=== PATIENT | male | born 1965 | race Caucasian/White ===

== ENCOUNTER 2016-08-06 15:54 | Emergency (ER) | payer OTHER ==
[~2016-08-06] VITALS: Ht 177.8 cm; Wt 110.2 kg
[2016-08-06] MEDS ORDERED: RIVA15TA PO (16:51)
--- NOTE | 2016-08-06 16:51 | ED Lower Extremity ---
General Chief Complaint: Lower Extremity Stated Complaint: L LEG BLOOD CLOT Nursing Triage Note: PT REPORTS HE WAS DC'D FROM [facility] YESTERDAY AFTER KIDNEY STONE REMOVAL SX. HE REPORTS HE WAS TAKEN OFF HIS COUMADIN PRIOR TO SX, BUT RESTARTED IT YESTERDAY. HE REPORTS HE BEGAN HAVING L LEG PAIN THIS AM AND HIS PCP ORDERED AN OP US WHICH SHOWED A THROMBUS TO HIS L LOWER EXTREMITY. Nursing Sepsis Screen: No Definite Risk Source: patient Exam Limitations: no limitations History of Present Illness Time seen by provider: 16:46 Initial Comments Patient has history of recurrent DVTs. He has an IVC filter. He was on maintenance Coumadin until last week when he had percutaneous nephrectomy and stenting at [facility]. He was maintained on Lovenox during that time. He was discharged 2 days ago and started back on his Coumadin. He developed left leg pain and swelling yesterday. His doctor ordered an outpatient ultrasound which showed a large left leg DVT. His INR was 1. His physician told him to come here for evaluation. He denies chest pain or shortness of air. Allergies and Home Medications Allergies Coded Allergies: NKANo Known Allergies (Verified Allergy, Unknown, 04/28/13) Home Medications Alprazolam 1 Mg Tablet, 1 MG PO HS, (Reported) Cefprozil 250 Mg Tablet, 250 MG PO BID, #14 Ref 0 Prescribed by: BRUCE SANDHU on 11/04/14 0942 Hydrocodone/Acetaminophen 1 Each Tablet, 1 TAB PO EVERY 6-8 HOURS PRN for PAIN, (Reported) Levothyroxine Sodium 88 Mcg Tablet, 88 MCG PO DAILY, (Reported) Tamsulosin HCl 0.4 Mg Cap, 0.4 MG PO EVERY EVENING, (Reported) Warfarin Sodium 7.5 Mg Tablet, 7.5 MG PO HS, (Reported) Constitutional: no symptoms reported Respiratory: no symptoms reported Cardiovascular: no symptoms reported Musculoskeletal: see HPI (leg pain and swelling) All Other Systems Reviewed Negative Unless Noted: Yes Past Lewxvfg-Ycxjkl-Setklv Hx Patient Social History Alcohol Use: Denies Use Recreational Drug Use: No Smoking Status: Never a Smoker 2nd Hand Smoke Exposure: No Recent Foreign Travel: No Contact w/Someone Who Travel: No Recent Infectious Disease Expo: No Recent Hopitalizations: Yes (HX KIDNEY STONES) Immunizations Up To Date Tetanus Booster (TDap): Unknown Surgeries HX Surgeries: Yes (URETERAL STENT, LEFT ANKLE ORIF, VENA CAVA FILTER) Surgeries: Orthopedic, Renal, Vascular Surgery Respiratory Hx Respiratory Disorders: Yes Respiratory Disorders: Pulmonary Embolism, Sleep Apnea Cardiovascular Hx Cardiac Disorders: Yes Cardiac Disorders: Deep Vein Thrombosis, Hypertension Neurological Hx Neurological Disorders: No Reproductive System Hx Reproductive Disorders: No Sexually Transmitted Disease: No Genitourinary Hx Genitourinary Disorders: Yes Genitourinary Disorders: Kidney Stones Gastrointestinal Hx Gastrointestinal Disorders: Yes (HEPATIC STEATOSIS) Gastrointestinal Disorders: Liver Disease/Jaundice, Diverticulosis Musculoskeletal Hx Musculoskeletal Disorders: Yes (LEFT ANKLE FX ORIF 2013) Musculoskeletal Disorders: Degenerate Disk Disease, Fractures Endocrine Hx Endocrine Disorders: Yes Endocrine Disorders: Hypothyroidsim HEENT HX ENT Disorders: No Cancer Hx Cancer: 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) Cancer: Thyroid Psychosocial Hx Psychiatric Problems: Yes Behavioral Health Disorders: Anxiety Integumentary HX Skin/Integumentary Disorder: No Blood Transfusions Hx Blood Disorders: No Reviewed Nursing Assessment Reviewed/Agree w Nursing PMH: Yes Family Medical History Family Medial History: Family history: Thyroid disorder 03 MOTHER Physical Exam Vital Signs Vital Sign - Last 12Hours 08/06/16 16:30 Temp 98.0 Pulse 75 Resp 16 B/P (MAP) 152/93 Pulse Ox 97 O2 Delivery Room Air Capillary Refill : Less Than 3 Seconds General Appearance: WD/WN, no apparent distress Neck: supple Cardiovascular: regular rate, rhythm Respiratory: lungs clear Gastrointestinal: soft Hips: bilateral hip non-tender Legs: left leg pain, left leg soft tissue tenderness (Tenderness and mild swelling left leg pedal pulses are equal), left leg swelling Neurologic/Tendon: normal sensation, normal motor functions Neurologic/Psychiatric: alert, normal mood/affect Skin: normal color Progress/Results/Core Measures Results/Orders Vital Signs/I&O Vital Sign - Last 12Hours 08/06/16 16:30 Temp 98.0 Pulse 75 Resp 16 B/P (MAP) 152/93 Pulse Ox 97 O2 Delivery Room Air Blood Pressure Mean: 112 Progress Note : Time: 16:50 Progress Note I spoke with Dr. Martinez who is on-call for internal medicine. She recommended starting Xarelto 50 mg twice a day for 3 weeks and 20 mg daily indefinitely for his DVT. I talk with the patient is in complete agreement with this. He is going to the pharmacy to berry picker his Xarelto tonight. He understands he needs to follow-up with his primary care physician regarding further treatment. Diagnostic Imaging Comments Date of Exam:08/06/16 US VENOUS LOWER EXT BLANKA EXAM: US VENOUS LOWER EXT BLANKA INDICATION: HX OF DVT, PAIN COMPARISON: Left lower extremity venous ultrasound 11/02/2014. FINDINGS: Right: The right common femoral, superficial femoral, profunda femoral and popliteal veins demonstrate normal compressibility, color flow and Doppler augmentation. The deep right calf veins are patent where seen. Left: There is occlusive thrombus extending from the distal left superficial femoral vein inferiorly into the ankle. Only one of the posterior tibial veins is patent. Both peroneal veins are occluded. The more proximal left superficial vein and common femoral vein are patent. IMPRESSION: 1. Occlusive thrombus within the left lower extremity extending from the left superficial vein inferiorly to the level of the ankle. 2. No evidence of deep venous thrombosis in the right lower extremity. Departure Impression Impression: Primary Impression: Deep vein thrombosis of left lower extremity Disposition: 01 HOME, SELF-CARE Condition: Stable Departure-Patient Inst. Decision time for Depature: 16:51 Referrals: BRUCE SANDHU DO (PCP/Family) Primary Care Physician Patient Instructions: Deep Vein Thrombosis (Blood Clots in the Legs) (DC) Add. Discharge Instructions: Stop Coumadin. Takes Xarelto 50 mg twice a day for 3 weeks. See your this week as you will need to change her dose to 20 mg daily after 3 weeks. All discharge instructions reviewed with patient and/or family. Voiced understanding. Scripts Rivaroxaban (Xarelto) 15 Mg Tablet 15 MG PO BID for 21 Days, #42 TAB Prov: OUMAR MARTINEZ MD 08/06/16 OUMAR MARTINEZ MD Aug 06, 2016 16:51
[2016-08-06 16:57] VITALS: BP 152/93
--- OUTSIDE RECORDS SUMMARY | 2016-08-18 12:37 | XMS REPORT | Continuity of Care Document ---
Author Author [facility] Organization [facility] Address Unknown Phone Unavailable Care Team Providers Care Executive Communications Manager Name Role Phone Riky Terry III PCP [phone] Source Comments Some departments are not documenting in the electronic medical record. If you do not see the information that you expected, contact Release of Information in the Health Information Management department at [phone] for further assistance in locating additional records.[facility] Active Allergies and Adverse Reactions No Known Allergies Current Medications Prescription Sig. Disp. Refills Start End Date Status Date tamsulosin (FLOMAX) 0.4 Take 0.4 mg by mouth at Active mg capsule bedtime daily. ALPRAZolam (XANAX) 0.5 mg Take 0.5 mg by mouth at Active tablet bedtime as needed. levothyroxine (SYNTHROID) Take 88 mcg by mouth Active 88 mcg tablet daily. WARFARIN SODIUM (WARFARIN Take by mouth. Active PO) oxyCODONE/acetaminophen Take 1-2 Tabs by mouth 30 Tab 0 08/05/19 Active (PERCOCET; ENDOCET; every 4 hours as needed 17 ROXICET) 5/325 mg tablet Indications: PAIN senna/docusate Take 1 Tab by mouth twice 15 Tab 0 08/05/19 Active (SENNALAX-S) 8.6/50 mg daily. Indications: 17 tablet CONSTIPATION polyethylene glycol 3350 Take 17 g by mouth daily. 527 g 3 08/05/19 Active (GLYCOLAX; MIRALAX) 17 17 gram/dose powder hyoscyamine (ANASPAZ; Dissolve 1 Tab by mouth 30 Tab 3 08/06/19 Active NULEV; SYMAX FASTABS; every 4 hours as needed 17 HYOMAX-FT; ED-SPAZ; for Cramps. Max 1.5 mg/ OSCIMIN) 0.125 mg rapid day dissolve tablet oxybutynin chloride Take 1 Tab by mouth three 90 Tab 1 08/06/19 Active (DITROPAN) 5 mg tablet times daily. For bladder 17 spasms Active Problems Problem Noted Date Nephrolithiasis 08/02/2016 Kidney stones 12/30/2013 Overview: He has a very long history of stones managed previously by Dr. Yanes in [place], [place]. He has had countless ESWLs for these but no other procedures. Occasionally, he will pass stones on his own. In 04/2013, he broke his leg and was admitted to the hospital for management. He then developed a wound infection and had to be treated with IV antibiotics. While inpatient, he had gross hematuria. CT scan on 12/2013 showed large right lower pole kidney stone. I spoke with patient regarding CT scan findings. He has a large stone in the right lower pole. He reports being symptomatic (pain, blood in urine). His case is complicated by his need for anticoagulation in the perioperative time frame. Therefore, I have recommended ureteroscopy (as opposed to ESWL or PCNL). He agrees. He understands need for stent afterwards. He is going to get anticoagulation recommendation from Dr. Terry. Will schedule surgery based on clearance. All qeustions answered. Patient subsequently cancelled surgery due to fear of hematuria and pain after surgery. He was also worried about the stent. He does not want to come of anticoagulation. 07/13/14: Patient here for follow-up. CT scan shows large lower pole right kidney stone. Patient lost to follow-up. 05/01/16: Patient comes back for follow-up requesting surgery. Stone has grown in size to 1.7 cm in size with multiple other stones. L ast Assessment & Plan: Patient with enlarging right kidney stone and increasing hematuria with activity (golfing). He is now ready to proceed with surgery. Finding a date was difficult given his schedule and requests. -- To OR 07/21/16 for right PCNL -- IR access 07/20/16 in mid/lower pole -- All risks and benefits discussed in depth. All questions answered -- Patient will need clearance by Dr. Terry in regards to anticoagulation recommendations -- Urine culture today -- All questions answered Most Recent Encounters Date Type Specialty Providers Description 08/11/2016 Telephone Urology Reed Olson MD General Question 08/05/2016 Telephone Urology Suzy Moraes MD General Question 08/03/2016 Surgery Monster Hernández MD RIGHT PERCUTANEOUS NEPHROLITHOTOMY > 2CM, DILATION OF NEPHROSTOMY TUBE TRACT, FLUOROSCOPY, STENT PLACEMENT 08/02/2016 [facility] Monster Hernández MD Nephrolithiasis - Encounter Alise[address]rys[address]am[address] Lane, 08/04/2016 RN Mayur Lott Zachary S, MD 08/02/2016 Anesthesia Ehsan Marie, SRNA Event 06/06/2016 Telephone Cardiology Mary Moyer Social History Tobacco Use Types Packs/Day Years Used Date Current Every Day Smoker Cigarettes 1 25 Smokeless Tobacco: Never Used Tobacco Cessation: Ready to Quit: No; Counseling Given: No Comments: Alcohol Use Drinks/Week oz/Week Comments No Last Filed Vital Signs Vital Sign Reading Time Taken Blood Pressure 133/71 08/04/2016 8:00 AM CDT Pulse 71 08/04/2016 8:00 AM CDT Temperature 36.9 C (98.5 F) 08/04/2016 8:00 AM CDT Respiratory Rate - - Height 1.753 m (5' 9") 08/02/2016 6:00 PM CDT Weight 108.863 kg (240 lb) 08/02/2016 6:00 PM CDT Body Mass Index 35.43 08/02/2016 6:00 PM CDT Oxygen Saturation 94% 08/04/2016 8:00 AM CDT Plan of Care Health Maintenance Due Date Last Done Comments Hepatitis C Screening 1965 Physical (Comprehensive) 01/25/1972 Exam Pertussis Vaccine 01/25/1976 Tetanus Vaccine 1982 Colorectal Cancer 2015 Screening Influenza Vaccine 11/03/2016 Procedures from Last 3 Months Procedure Name Priority Date/Time Associated Diagnosis Comments TELEMETRY STRIPS-SCAN 08/07/2016 Results for this 9:22 AM CDT procedure are in the results section. RIGHT PERCUTANEOUS 08/03/2016 Kidney stone NEPHROLITHOTOMY > 2CM, 10:25 AM CDT DILATION OF NEPHROSTOMY TUBE TRACT, FLUOROSCOPY, STENT PLACEMENT Special Needs 3-16 PER CHANGE FORM, CASE MOVED FROM 5-19 TO 6-1 CS (1233) Results from Last 3 Months * TELEMETRY STRIPS-SCAN (08/07/2016 9:22 AM) Narrative Ordered by an unspecified provider. * CT ABD/PELV WO CONTRAST (08/04/2016 6:25 AM) Impressions 1. Interval right percutaneous nephrolithotomy without residual right renal/ urinary tract calculi. 2. Right nephroureteral stent in place without hydronephrosis. 3. Malpositioned right percutaneous nephrostomy adjacent to the right lower pole. 4. Persistent nonobstructive left nephrolithiasis. 5. Moderate diverticulosis. Approved by Collin Cristina M.D. on 08/04/2016 8:41 AM By my electronic signature, I attest that I have personally reviewed the images for this examination and formulated the interpretations and opinions expressed in this report Finalized by Lillian Fontanez M.D. on 08/04/2016 8:50 AM. Dictated by Collin Cristina M.D. on 08/04/2016 7:[address] ABDOMEN AND PELVIS Clinical Indication: Status post percutaneous nephrolithotomy, nephrolithiasis. Technique: Multiple contiguous axial CT images were obtained through the abdomen and pelvis without IV contrast. Post processing coronal and sagittal reconstruction images were made from the axial images. IV contrast: None. Comparison: May 01, 2016. FINDINGS: Limited evaluation without the use of IV contrast which includes the viscera and vasculature. Lower Thorax: The heart is normal size without significant pericardial effusion. There is a trace left pleural effusion. There is mild bibasilar atelectasis. Liver and Biliary system: The liver is normal in size. Limited evaluation for focal hepatic lesion in the absence of intravenous contrast. No calcified gallstones are identified. Spleen: Unremarkable. Adrenal Glands and Kidneys: There is a are few unchanged punctate nonobstructive left renal calculi. The adrenal glands are unremarkable. There is interval removal of staghorn calculus within the lower pole of the right kidney. No definite residual right renal calculi are identified. There is malpositioning of the right percutaneous nephrostomy adjacent to the inferior pole the right kidney. There is a right nephroureteral stent in place with trace gas within the collecting system. There is no hydronephrosis or urolithiasis. Pancreas and Retroperitoneum: The pancreas is unremarkable. There is unchanged mild retroperitoneal lymphadenopathy. Aorta and Major Vessels: The abdominal aorta is normal caliber with mild aortoiliac atherosclerotic calcifications. There is an IVC filter in place with multiple collaterals again noted. Bowel, Mesentery and Peritoneal space: The large and small bowel loops are normal caliber. There is moderate colonic diverticulosis. The appendix is normal. There is no significant ascites. There is mild central mesenteric/ retroperitoneal congestion which is likely post therapeutic. Pelvis: The urinary bladder is partially decompressed about a Serrano catheter. There is intraluminal urinary bladder gas which is likely iatrogenic. The prostate gland is normal. There is no pelvic lymphadenopathy. Abdominal wall and Osseous Structures: No destructive osseous lesion is identified. There are small fat-containing inguinal hernias and a tiny fat- containing umbilical hernia. Procedure Note Interface, Radiant Results - SunAug 04, 2016 8:[address] ABDOMEN AND PELVIS Clinical Indication: Status post percutaneous nephrolithotomy, nephrolithiasis. Technique: Multiple contiguous axial CT images were obtained through the abdomen and pelvis without IV contrast. Post processing coronal and sagittal reconstruction images were made from the axial images. IV contrast: None. Comparison: May 01, 2016. FINDINGS: Limited evaluation without the use of IV contrast which includes the viscera and vasculature. Lower Thorax: The heart is normal size without significant pericardial effusion. There is a trace left pleural effusion. There is mild bibasilar atelectasis. Liver and Biliary system: The liver is normal in size. Limited evaluation for focal hepatic lesion in the absence of intravenous contrast. No calcified gallstones are identified. Spleen: Unremarkable. Adrenal Glands and Kidneys: There is a are few unchanged punctate nonobstructive left renal calculi. The adrenal glands are unremarkable. There is interval removal of staghorn calculus within the lower pole of the right kidney. No definite residual right renal calculi are identified. There is malpositioning of the right percutaneous nephrostomy adjacent to the inferior pole the right kidney. There is a right nephroureteral stent in place with trace gas within the collecting system. There is no hydronephrosis or urolithiasis. Pancreas and Retroperitoneum: The pancreas is unremarkable. There is unchanged mild retroperitoneal lymphadenopathy. Aorta and Major Vessels: The abdominal aorta is normal caliber with mild aortoiliac atherosclerotic calcifications. There is an IVC filter in place with multiple collaterals again noted. Bowel, Mesentery and Peritoneal space: The large and small bowel loops are normal caliber. There is moderate colonic diverticulosis. The appendix is normal. There is no significant ascites. There is mild central mesenteric/ retroperitoneal congestion which is likely post therapeutic. Pelvis: The urinary bladder is partially decompressed about a Serrano catheter. There is intraluminal urinary bladder gas which is likely iatrogenic. The prostate gland is normal. There is no pelvic lymphadenopathy. Abdominal wall and Osseous Structures: No destructive osseous lesion is identified. There are small fat-containing inguinal hernias and a tiny fat- containing umbilical hernia. IMPRESSION 1. Interval right percutaneous nephrolithotomy without residual right renal/ urinary tract calculi. 2. Right nephroureteral stent in place without hydronephrosis. 3. Malpositioned right percutaneous nephrostomy adjacent to the right lower pole. 4. Persistent nonobstructive left nephrolithiasis. 5. Moderate diverticulosis. Approved by Collin Cristina M.D. on 08/04/2016 8:41 AM By my electronic signature, I attest that I have personally reviewed the images for this examination and formulated the interpretations and opinions expressed in this report Finalized by Lillian Fontanez M.D. on 08/04/2016 8:50 AM. Dictated by Collin Cristina M.D. on 08/04/2016 7:42 AM. * BASIC METABOLIC PANEL (08/04/2016 3:04 AM) Only the most recent of 3 results within the time period is included. Component Value Range Sodium 139 137-147 MMOL/L Potassium 4.7 3.5-5.1 MMOL/L Chloride 108 98-110 MMOL/L CO2 25 21-30 MMOL/L Anion Gap 6 3-12 Glucose 110 (H) 70-100 MG/DL Blood Urea Nitrogen 14 7-25 MG/DL Creatinine 1.05 0.4-1.24 MG/DL Calcium 8.5 8.5-10.6 MG/DL eGFR Non >60Comment: >60 mL/min The eGFR is not validated for use in drug dosing adjustments. Continue to use estimated creatinine clearance per dosing reference text. Please contact the Clinical Pharmacist for questions. eGFR >60Comment: >60 mL/min The eGFR is not validated for use in drug dosing adjustments. Continue to use estimated creatinine clearance per dosing reference text. Please contact the Clinical Pharmacist for questions. Specimen Blood * CBC (08/04/2016 3:04 AM) Only the most recent of 3 results within the time period is included. Component Value Range White Blood Cells 16.4 (H) 4.5-11.0 K/UL RBC 4.97 4.4-5.5 M/UL Hemoglobin 14.7 13.5-16.5 GM/DL Hematocrit 44.3 40-50 % MCV 89.1 80-100 FL MCH 29.6 26-34 PG MCHC 33.2 32.0-36.0 G/DL RDW 14.4 11-15 % Platelet Count 124 (L) 150-400 K/UL MPV 8.8 7-11 FL Specimen Blood * STONE ANALYSIS (08/03/2016 12:00 PM) Component Value Range Stone Source Passed Stone [facility], [address] [place] [id number] 1st Constituent 90% Uric acid [facility], [address] [place] [id number] 2nd Constituent 10% Calcium oxalate monohydrate ADDITIONAL INFORMATION This test was developed and its performance characteristics determined by [facility] in a manner consistent with CLIA requirements. This test has not been cleared or approved by the U.S. Food and Drug Administration. [facility], [address] [place] [id number] * BLOOD TYPE CONFIRMATION - ORDER ONLY IF REQUESTED BY LAB (08/03/2016 9:30 AM) Component Value Range ABO/RH(D) O POS Specimen Blood * TYPE & CROSSMATCH (08/03/2016 8:50 AM) Component Value Range Units Ordered 0 Crossmatch Expires 08/06/2016 Record Check 2ND TYPE REQUIRED ABO/RH(D) O POS Antibody Screen NEG Electronic Crossmatch YES * IR ASPIRATION/DRAIN (08/02/2016 3:41 PM) Impressions Successful image guided placement of right percutaneous nephroureteral catheter. I, Marcus Camargo M.D, the attending radiologist, was present for the critical and holland portions of the procedure with a midlevel, resident, and/or fellow participating.Overlapping portions were non holland and I was immediately available.I interpret the critical and holland portion of this procedure to have been needle access. @TT Approved by Riky Lainez M.D. on 08/03/2016 11:12 AM By my electronic signature, I attest that I have personally reviewed the images for this examination and formulated the interpretations and opinions expressed in this report Finalized by Marcus Camargo M.D. on 08/03/2016 5:30 PM. Dictated by Riky Lainez M.D. on 08/03/2016 11:05 AM. Narrative 1. Right Antegrade Nephrostogram 2. Right Percutaneous Nephroureteral Catheter Placement INDICATION:Nephrolithiasis DATE OF PROCEDURE:08/02/2016 OPERATING PHYSICIAN: Marcus Camargo MD, Riky Lainez MD MEDICATIONS:Versed 1 mg IV, Fentanyl 200 mcg IV CATHETER: 5 Mauritian MILTON 1 catheter FLUOROSCOPY DOSE: 337 mGy TECHNIQUE: The risks benefits and alternatives of the procedure as well as conscious sedation were discussed. After obtaining informed consent the patient was prepped and draped in the usual sterile fashion. 1% lidocaine was used as local anesthetic. Using ultrasound guidance, a 22 gauge Chiba needle was introduced into the right lower pole posterior calyx.An 0.018 inch cope wire was then passed through the needle into the renal pelvis. The needle was then removed and a 6 Mauritian transitional dilator was placed over the wire, and subsequently the wire and inner dilator were removed.An antegrade nephrostogram was then performed. A 0.035" wire was advanced through the dilator into the ureter and the bladder.The transitional dilator was completely removed, and 5 Mauritian JB1 nephroureteral catheter was advanced into the renal pelvis and bladder. The nephroureteral catheter was then anchored to the skin and a sterile dressing was applied. The patient tolerated the procedure well and left the angiography suite in stable condition without any immediate postprocedural complications. Conscious sedation was provided for patient's comfort. Vitals were monitored prior, during and after the procedure and were stable. FINDINGS: 1. Antegrade nephrostogram demonstrates nephrolithiasis with a large calculus in the rightlower pole calyces. No significant hydroureter is identified. Normal passage of contrast into the bladder was visualized. 2. The new right-sided percutaneous nephroureteral catheter is adequately positioned with distal tip in the bladder. Procedure Note Interface, Radiant Results - [facility] Aug 03, 2016 5:33 PM CDT 1. Right Antegrade Nephrostogram 2. Right Percutaneous Nephroureteral Catheter Placement INDICATION: Nephrolithiasis DATE OF PROCEDURE: 08/02/2016 OPERATING PHYSICIAN: Marcus Camargo MD, Riky Lainez MD MEDICATIONS: Versed 1 mg IV, Fentanyl 200 mcg IV CATHETER: 5 Mauritian MILTON 1 catheter FLUOROSCOPY DOSE: 337 mGy TECHNIQUE: The risks benefits and alternatives of the procedure as well as conscious sedation were discussed. After obtaining informed consent the patient was prepped and draped in the usual sterile fashion. 1% lidocaine was used as local anesthetic. Using ultrasound guidance, a 22 gauge Chiba needle was introduced into the right lower pole posterior calyx. An 0.018 inch cope wire was then passed through the needle into the renal pelvis. The needle was then removed and a 6 Mauritian transitional dilator was placed over the wire, and subsequently the wire and inner dilator were removed. An antegrade nephrostogram was then performed. A 0.035" wire was advanced through the dilator into the ureter and the bladder. The transitional dilator was completely removed, and 5 Mauritian JB1 nephroureteral catheter was advanced into the renal pelvis and bladder. The nephroureteral catheter was then anchored to the skin and a sterile dressing was applied. The patient tolerated the procedure well and left the angiography suite in stable condition without any immediate postprocedural complications. Conscious sedation was provided for patient's comfort. Vitals were monitored prior, during and after the procedure and were stable. FINDINGS: 1. Antegrade nephrostogram demonstrates nephrolithiasis with a large calculus in the right lower pole calyces. No significant hydroureter is identified. Normal passage of contrast into the bladder was visualized. 2. The new right-sided percutaneous nephroureteral catheter is adequately positioned with distal tip in the bladder. IMPRESSION Successful image guided placement of right percutaneous nephroureteral catheter. I, Marcus Camargo M.D, the attending radiologist, was present for the critical and holland portions of the procedure with a midlevel, resident, and/or fellow participating. Overlapping portions were non holland and I was immediately available. I interpret the critical and holland portion of this procedure to have been needle access. @TT Approved by Riky Lainez M.D. on 08/03/2016 11:12 AM By my electronic signature, I attest that I have personally reviewed the images for this examination and formulated the interpretations and opinions expressed in this report Finalized by Marcus Camargo M.D. on 08/03/2016 5:30 PM. Dictated by Riky Lainez M.D. on 08/03/2016 11:05 AM.
--- OUTSIDE RECORDS SUMMARY | 2016-08-18 12:38 | XMS REPORT | Continuity of Care Document ---
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 Family History History Response Recorded Date/Time Hx Family Cancer N 05/05/10 6:12pm Social History History Response Recorded Date/Time Alcohol Use Denies Use 07/30/12 1:39pm Recreational Drug Use N 07/30/12 1:39pm Allergies, Adverse Reactions, Alerts Allergen Type Severity Reaction Last Updated NKANo Known Allergies Allergy Unknown 12/14/05 Medications Medication Dose Units Route Sig Qty Days Hydrocodone Bit/Acetaminophen (Hydrocodon-Acetaminoph 7.5-325) 1 Each PO Q4H PRN 20 Ciprofloxacin (Cipro) 1 Tab PO BID 7 Alprazolam (Xanax) 1 Tab PO PRN Metronidazole (Flagyl 500 Mg) 1 Each PO TID 30 Ciprofloxacin (Cipro) 1 Tab PO BID 20 Warfarin Sodium (Coumadin) 7 Mg PO DAILY Response Recorded Date/Time Status not known Unknown Results Test Date Result Interp. Ref. Range Acetaminophen Screen December 03, 2009 12:50am POSITIVE H - Activated Partial Thromboplast Time July 13, 2011 7:38pm 33 SEC N 24-35 Alanine Aminotransferase (ALT/SGPT) July 13, 2011 7:38pm 54 U/L N 30-65 Albumin July 13, 2011 7:38pm 3.7 G/DL N 3.4-5.0 Alkaline Phosphatase July 13, 2011 7:38pm 150 U/L H 50-136 Amylase Level June 10, 2011 1:30pm 71 U /L N 25-115 Anisocytosis October 26, 2006 11:47am Moderate - Aspartate Amino Transf (AST/SGOT) July 13, 2011 7:38pm 21 U/L N 15-37 BUN/Creatinine Ratio July 13, 2011 7:38pm 14 - Band Neutrophils June 10, 2011 1:30pm 0 % - Basophils # (Auto) July 13, 2011 7:38pm 0.1 10^3/uL N 0.0-0.1 Basophils % (Manual) June 10, 2011 1:30pm 0 % - Basophils (%) (Auto) July 13, 2011 7:38pm 1 % N 0-10 Blood Urea Nitrogen July 13, 2011 7:38pm 17 MG/DL N 7-18 Calcium Level July 13, 2011 7:38pm 8.9 MG /DL N 8.5-10.1 Carbon Dioxide Level July 13, 2011 7:38pm 31 MMOL/L N 21-32 Chloride Level July 13, 2011 7:38pm 105 MMOL/L N 101-110 Creatinine July 13, 2011 7:38pm 1.2 MG/ DL N 0.6-1.3 D-Dimer July 13, 2011 7:38pm < 0.22 UG/ ML 0.00-0.49 Eosinophils # (Auto) July 13, 2011 7:38pm 0.5 10^3/uL H 0.0-0.3 Eosinophils % (Manual) June 10, 2011 1:30pm 0 % - Eosinophils (%) (Auto) July 13, 2011 7:38pm 5 % N 0-10 Erythrocyte Sedimentation Rate July 13, 2011 7:38pm 1 MM/HR N 0-15 Glucose Level July 13, 2011 7:38pm 112 MG /DL H 74-106 Hematocrit July 13, 2011 7:38pm 51 % N 40-54 Hemoglobin July 13, 2011 7:38pm 17.3 G/ DL N 13.3-17.7 Lipase June 10, 2011 1:30pm 236 U/L N 73-393 Lymphocytes # (Auto) July 13, 2011 7:38pm 3.3 X 10^3 N 1.0-4.0 Lymphocytes % (Manual) June 10, 2011 1:30pm 17 % - Lymphocytes (%) (Auto) July 13, 2011 7:38pm 30 % N 12-44 Mean Corpuscular Hemoglobin July 13, 2011 7:38pm 30 PG N 25-34 Mean Corpuscular Hemoglobin Concent July 13, 2011 7:38pm 34 G/DL N 32-36 Mean Corpuscular Volume July 13, 2011 7:38pm 88 FL N 80-99 Mean Platelet Volume July 13, 2011 7:38pm 10.3 FL N 7.4-10.4 Microcytosis October 26, 2006 11:47am Moderate - Monocytes # (Auto) July 13, 2011 7:38pm 1.1 X 10^3 H 0.0-1.0 Monocytes % (Manual) June 10, 2011 1:30pm 10 % - Monocytes (%) (Auto) July 13, 2011 7:38pm 10 % N 0-12 Neutrophils # (Auto) July 13, 2011 7:38pm 6.0 X 10^3 N 1.8-7.8 Neutrophils % (Manual) June 10, 2011 1:30pm 73 % - Neutrophils (%) (Auto) July 13, 2011 7:38pm 55 % N 42-75 Platelet Count July 13, 2011 7:38pm 173 10^3/uL N 130-400 Potassium Level July 13, 2011 7:38pm 3.7 MMOL/L N 3.6-5.0 Prothromb Time International Ratio November 08, 2011 9: 04am 0.8 N 0.8-1.4 Prothrombin Time November 08, 2011 9:04am 11.5 SEC L 12.2-14.7 Reactive Lymphocytes October 26, 2006 11:47am 7 % - Red Blood Count July 13, 2011 7:38pm 5.82 10^6/uL N 4.35-5.85 Red Cell Distribution Width July 13, 2011 7:38pm 14.1 % N 10.0-14.5 Sodium Level July 13, 2011 7:38pm 140 MMOL/L N 135-145 Total Bilirubin July 13, 2011 7:38pm 0.1 MG/DL N 0.0-1.0 Total Protein July 13, 2011 7:38pm 7.9 G/ DL N 6.4-8.2 Ur Tricyclic Antidepressants Screen December 03, 2009 12: 50am NEGATIVE - Uric Acid September 19, 2011 12:51pm 5.9 MG/ DL N 2.6-7.2 Urine Amphetamines Screen December 03, 2009 12:50am NEGATIVE - Urine Bacteria June 10, 2011 1:58pm NONE - Urine Barbiturates Screen December 03, 2009 12:50am NEGATIVE - Urine Benzodiazepines Screen December 03, 2009 12:50am NEGATIVE - Urine Bilirubin June 10, 2011 1:58pm NEGATIVE - Urine Calcium Oxalate Crystals October 26, 2006 12:25pm Rare H - Urine Casts June 10, 2011 1:58pm NONE - Urine Clarity June 10, 2011 1:58pm CLEAR - Urine Cocaine Screen December 03, 2009 12:50am NEGATIVE - Urine Color June 10, 2011 1:58pm YELLOW - Urine Crystals June 10, 2011 1:58pm NONE - Urine Culture Indicated June 10, 2011 1:58pm NO - Urine Glucose (UA) June 10, 2011 1:58pm NEGATIVE - Urine Ketones June 10, 2011 1:58pm NEGATIVE - Urine Leukocyte Esterase June 10, 2011 1:58pm NEGATIVE - Urine Methamphetamines Screen December 03, 2009 12:50am NEGATIVE - Urine Mucus June 10, 2011 1:58pm SMALL H - Urine Nitrate October 26, 2006 12:25pm Negative - Urine Nitrite June 10, 2011 1:58pm NEGATIVE - Urine Opiates Screen December 03, 2009 12:50am NEGATIVE - Urine Phencyclidine Screen December 03, 2009 12:50am NEGATIVE - Urine Protein June 10, 2011 1:58pm NEGATIVE - Urine RBC June 10, 2011 1:58pm 50-100 / HPF H - Urine Specific [place] June 10, 2011 1:58pm 1.025 H - Urine Squamous Epithelial Cells June 10, 2011 1:58pm 0-2 - Urine Urobilinogen June 10, 2011 1:58pm NORMAL MG/DL - Urine WBC June 10, 2011 1:58pm 2-5 / HPF - Urine pH June 10, 2011 1:58pm 6.0 - White Blood Count July 13, 2011 7:38pm 10.9 10^3/uL N 4.3-11.0 Factor V Leiden Mutation May 06, 2010 6:50am NEG - Lab Scanned Report September 28, 2009 4:37pm LAB Reports [id number] - Estimat Glomerular Filtration Rate July 13, 2011 7:38pm > 60 - Blood Morphology Comment June 10, 2011 1:30pm NORMAL - Urine Methadone Screen December 03, 2009 12:50am NEGATIVE - Urine Cannabinoids Screen December 03, 2009 12:50am POSITIVE H - Urine RBC (Auto) June 10, 2011 1:58pm 4 + H - Procedures Procedure Code Date CYSTOSCOPY AND TREATMENT 72850 12/14/05 CYSTOSCOPY AND TREATMENT 03543 09/30/09 CYSTOSCOPY AND TREATMENT 60742 09/30/09 FRAGMENTING OF KIDNEY STONE 36780 CYSTOSCOPY AND TREATMENT 41140 10/14/09 CYSTOSCOPY AND TREATMENT 62936 12/07/09 FRAGMENTING OF KIDNEY STONE 84584 PLICATION OF VENA CAVA 38.7 05/05/10 FNA W/IMAGE 27202 11/08/11 MRSA Screen 05/05/10 Urine Culture 12/13/05 Encounters Encounter Location Date/Time Registered Emergency Room [facility] 07/30/12 1:36pm Departed Emergency Room [facility] 18/02 11:55am Discharged Inpatient [facility] 3:18pm
--- OUTSIDE RECORDS SUMMARY | 2016-08-18 12:38 | XMS REPORT | Continuity of Care Document ---
Author Author [facility] Organization [facility] Address Unknown Phone Unavailable Allergies Active Description Code Type Severity Reaction Onset Reported/Identified Relationship to Patient Clinical Status Yes NKANo Known Allergies NKA Miscellaneous Allergy Unknown N/ A 04/28/2013 Medications Problems Date Dx Coded Attending Type Code Diagnosis Diagnosed By 10/15/2009 Ot 592.0 12/04/2009 Ot 562.11 12/04/2009 Ot 592.0 12/04/2009 Ot 592.1 12/07/2009 Ot 591 12/07/2009 Ot 592.0 12/07/2009 Ot 592.1 12/07/2009 Ot 788.0 01/06/2010 Ot 592.0 05/10/2010 Ot 305.1 05/10/2010 Ot 415.19 05/10/2010 Ot 451.11 05/10/2010 Ot 451.19 05/10/2010 Ot V58.61 06/10/2011 Ot 592.1 06/10/2011 Ot 789.09 07/13/2011 Ot 729.5 09/19/2011 Ot 562.11 09/19/2011 Ot 789.09 02/09/2012 Ot 327.23 07/30/2012 [place] Ot 592.0 07/30/2012 [place] Ot 789.09 04/22/2013 BRUCE SANDHU DO Ot 305.1 04/22/2013 BRUCE SANDHU DO Ot 327.23 04/22/2013 BRUCE SANDHU DO Ot 401.9 04/22/2013 BRUCE SANDHU DO Ot 453.40 04/22/2013 BRUCE SANDHU DO Ot 682.6 04/22/2013 BRUCE SANDHU DO Ot 721.3 04/22/2013 BRUCE SANDHU DO Ot 998.59 04/22/2013 BRUCE SANDHU DO Ot V10.87 04/22/2013 PHOEBE TERRY BRUCE J Ot V12.51 04/22/2013 SANDHUBRUCE BEASLEY DO Ot V12.55 05/07/2013 BRUCE SANDHU DO Ot 038.9 05/07/2013 SANDHUBRUCE BEASLEY DO Ot 041.04 05/07/2013 BRUCE SANDHU DO Ot 244.0 05/07/2013 SANDHUBRUCE BEASLEY DO Ot 276.51 05/07/2013 SANDHUBRUCE BEASLEY DO Ot 305.1 05/07/2013 SANDHU DOBRUCE Ot 327.23 05/07/2013 SANDHUBRUCE BEASLEY DO Ot 401.9 05/07/2013 SANDHUBRUCE BEASLEY DO Ot 453.50 05/07/2013 SANDHU DOBRUCE Ot 518.0 05/07/2013 SANDHUBRUCE BEASLEY DO Ot 562.10 05/07/2013 SANDHU DOBRUCE Ot 570 05/07/2013 SANDHU DO BRUCE Mcdaniel Ot 571.8 05/07/2013 SANDHU DO BRUCE Mcdaniel Ot 592.0 05/07/2013 SANDHU DOBRUCE Ot 599.0 05/07/2013 SANDHU DOBRUCE Ot 608.86 05/07/2013 BRUCE SANDHU DO Ot 682.6 05/07/2013 SANDHU DO BRUCE Mcdaniel Ot 721.3 05/07/2013 SANDHUBRUCE BEASLEY DO Ot 785.52 05/07/2013 SANDHUBRUCE BEASLEY DO Ot 995.92 05/07/2013 SANDHU DO BRUCE Mcdaniel Ot V10.87 05/07/2013 SANDHU DO BRUCE Mcdaniel Ot V45.89 11/02/2014 Ot 592.0 11/02/2014 Ot V72.83 11/02/2014 Ot V74.8 11/02/2014 Ot 592.1 11/02/2014 Ot 598.9 11/02/2014 Ot 788.0 11/02/2014 Ot 592.1 11/02/2014 Ot 592.0 11/02/2014 Ot 592.0 11/02/2014 Ot 415.19 11/02/2014 Ot 453.40 11/02/2014 Ot 241.0 11/02/2014 Ot 241.0 11/02/2014 Ot V72.63 11/02/2014 Ot 721.3 11/02/2014 Ot 729.5 11/02/2014 Ot 786.50 11/02/2014 PHOEBEBRENDA BAG MACHINE SET UP OPERATOR Ot 729.5 11/02/2014 SANDHUBRENDA BAG MACHINE SET UP OPERATOR Ot 729.81 11/02/2014 PHOEBEBRENDA BAG MACHINE SET UP OPERATOR Ot 780.60 11/02/2014 PHOEBEBRENDA BAG MACHINE SET UP OPERATOR Ot V12.51 11/02/2014 SANDHUBRENDA BAG MACHINE SET UP OPERATOR Ot V45.89 11/02/2014 PHOEBEBRENDA BAG MACHINE SET UP OPERATOR Ot 723.1 11/02/2014 PHOEBE BRENDA Jim BAG MACHINE SET UP OPERATOR Ot 723.4 11/02/2014 NASEEM BYERS, SANTIAGO Weaver Ot 724.2 11/04/2014 BRUCE SANDHU DO Ot 038.9 11/04/2014 SANDHUBRUCE BEASLEY DO Ot 244.9 11/04/2014 SANDHUBRUCE FARR DO Ot 305.1 11/04/2014 SANDHUBRUCE FARR DO Ot 327.23 11/04/2014 SANDHUBRUCE FARR DO Ot 401.9 11/04/2014 SANDHUBRUCE FARR DO Ot 453.6 11/04/2014 SANDHU BRUCE TERRY Ot 571.8 11/04/2014 SANDHUBRUCE FARR DO Ot 682.6 11/04/2014 BRUCE SANDHU DO Ot 995.91 11/04/2014 BRUCE SANDHU DO Ot V06.1 11/04/2014 SANDHU BRUCE TERRY Ot V10.87 11/04/2014 SANDHUBRUCE FARR DO Ot V12.55 Procedures Results Test Result Range PT panel in platelet poor plasma by coagulation assay - 08/06/16 13:51 Prothrombin time (PT) in platelet poor plasma by coagulation assay 12.7 s 12.2-14.7 INR in platelet poor plasma or blood by coagulation assay 1.0 0.8-1.4 Automated blood complete blood count (hemogram) panel - 08/06/16 13:51 Blood leukocytes automated count (number/volume) 12.4 10*3/ uL 4.3-11.0 Blood erythrocytes automated count (number/volume) 5.06 10*6 /uL 4.35-5.85 Venous blood hemoglobin measurement (mass/volume) 14.8 g/dL 13.3-17.7 Blood hematocrit (volume fraction) 45 % 40-54 Automated erythrocyte mean corpuscular volume 90 [foz_us] 80-99 Automated erythrocyte mean corpuscular hemoglobin (mass per erythrocyte) 29 pg 25-34 Automated erythrocyte mean corpuscular hemoglobin concentration measurement ( mass/volume) 33 g/dL 32-36 Automated erythrocyte distribution width ratio 13.9 % 10.0-14.5 Automated blood platelet count (count/volume) 139 10*3/uL 130-400 Automated blood platelet mean volume measurement 10.4 [foz_ us] 7.4-10.4 Encounters ACCT No. Visit Date/Time Discharge Status Pt. Type Provider Facility Loc./Unit Complaint [id number] 08/06/2016 15:55:00 2016 16:57:00 DIS Emergency JUAN BYERS, OUMAR Gallego [facility] ER L LEG BLOOD CLOT [id number] 11/02/2014 22:24:00 2014 12:05:00 DIS Inpatient BRUCE SANDHU DO [facility] SURGICAL [id number] 07/21/2013 10:54:00 2013 23:59:59 CLS Outpatient NASEEM BYERS, SANTIAGO Weaver [facility] RAD [id number] 04/28/2013 14:55:00 2013 19:45:00 DIS Inpatient BRUCE SANDHU DO [facility] [address] [id number] 04/28/2013 08:39:00 2013 23:59:59 CLS Outpatient BRENDA SANDHU [facility] RAD [id number] 04/21/2013 12:27:00 2013 12:20:00 DIS Inpatient BRUCE SANDHU DO [facility] [address] [id number] 04/21/2013 09:36:00 2013 23:59:59 CLS Outpatient BRENDA SANDHU [facility] RAD [id number] 07/30/2012 13:36:00 2012 16:50:00 DIS Emergency KWAN SENLLIFRAHMOON L [facility] ER [id number] 08/06/2016 13:40:00 ACT Outpatient PHOEBE BRUCE TERRY [facility] RAD HX DVT,LOWER EXT PAIN [id number] 11/02/2014 18:39:00 Document Registration [id number] 11/02/2014 18:39:00 Document Registration [id number] 11/02/2014 18:39:00 Document Registration [id number] 11/02/2014 18:38:00 Document Registration [id number] 02/20/2012 07:03:00 Document Registration [id number] 02/08/2012 22:45:00 Document Registration [id number] 11/10/2011 10:35:00 Document Registration [id number] 11/08/2011 08:58:00 Document Registration [id number] 11/08/2011 08:45:00 Document Registration [id number] 10/24/2011 11:25:00 Document Registration [id number] 09/19/2011 11:55:00 Document Registration [id number] 07/13/2011 18:39:00 Document Registration [id number] 06/10/2011 13:17:00 Document Registration [id number] 06/09/2010 09:03:00 Document Registration [id number] 05/05/2010 15:18:00 Document Registration [id number] 02/03/2010 13:48:00 Document Registration [id number] 01/06/2010 05:46:00 Document Registration [id number] 12/21/2009 13:23:00 Document Registration [id number] 12/14/2009 15:38:00 Document Registration [id number] 12/07/2009 07:15:00 Document Registration [id number] 12/03/2009 02:30:00 Document Registration [id number] 10/14/2009 06:49:00 Document Registration [id number] 09/30/2009 05:46:00 Document Registration [id number] 09/29/2009 10:42:00 Document Registration
== END 2016-08-06 16:57 | disposition home or self-care (01) ==
LOC: EDUNIT# 15:54 → ER 15:55
DX: I82.402 Acute embolism and thrombosis of unspecified deep veins of left lower extremity (principal); F41.9 Anxiety disorder, unspecified; E03.9 Hypothyroidism, unspecified; I10 Essential (primary) hypertension; Z79.01 Long term (current) use of anticoagulants; Z90.5 Acquired absence of kidney; Z95.828 Presence of other vascular implants and grafts; Z86.711 Personal history of pulmonary embolism; Z90.89 Acquired absence of other organs; Z85.850 Personal history of malignant neoplasm of thyroid; Z87.81 Personal history of (healed) traumatic fracture
CPT/HCPCS: 99283

== ENCOUNTER → 2016-08-06 | Outpatient (CLI) | payer OTHER ==
[~2016-08-06] MED LIST: ALPR.5T PO; ALPR1TAB7 PO; CEFP250T2 PO; CEPH500C PO; CIPR-17 PO; CPR500T PO; ENXP30I.3 SC; FRSM40T PO; HYDR-229 PO; HYDR-3812 PO; HYDR118S10 PO; HYDR1TAB66 PO; HYDR4TAB PO; KETO-22 PO; LEVO88TA54 PO; LISI1TAB10 PO; LISI1TAB8 PO; LVT.05T PO; METR500T PO; ONDAN4ODT PO; OXYC-281 PO; OXYC-309 PO; POTA20TA15 PO; RIVA15TA PO; TAMS0.4C98 PO; TMSL.4C PO; TOPI25TA2 PO; WARF7.5T PO; WRF10T PO
[2016-08-06 13:58] LABS: MEAN PLATELET VOLUME 10.4 FL (7.4-10.4); RED BLOOD COUNT 5.06 10^6/uL (4.35-5.85); RED CELL DISTRIBUTION WIDTH 13.9 % (10.0-14.5)
--- NOTE | 2016-08-06 14:59 | Diagnostic Imaging Report ---
EXAM: US VENOUS LOWER EXT BLANKA INDICATION: HX OF DVT, PAIN COMPARISON: Left lower extremity venous ultrasound 11/02/2014. FINDINGS: Right: The right common femoral, superficial femoral, profunda femoral and popliteal veins demonstrate normal compressibility, color flow and Doppler augmentation. The deep right calf veins are patent where seen. Left: There is occlusive thrombus extending from the distal left superficial femoral vein inferiorly into the ankle. Only one of the posterior tibial veins is patent. Both peroneal veins are occluded. The more proximal left superficial vein and common femoral vein are patent. IMPRESSION: 1. Occlusive thrombus within the left lower extremity extending from the left superficial vein inferiorly to the level of the ankle. 2. No evidence of deep venous thrombosis in the right lower extremity. Dictated by: Dictated on workstation # [id number]
[2016-08-06 16:33] LABS: WHITE BLOOD COUNT 12.4 10^3/uL (4.3-11.0)
[2016-08-06 16:34] LABS: PROTHROMBIN TIME PATIENT 12.7 SEC (12.2-14.7)
== END ==
LOC: RAD 13:40
PROVIDERS: ATTEND Internal Medicine
DX: I82.812 Embolism and thrombosis of superficial veins of left lower extremity (principal)
CPT/HCPCS: 36415; 85027; 85610; 93970

== ENCOUNTER 2017-02-10 23:29 | Emergency (ER) | payer OTHER ==
[~2017-02-10] VITALS: Ht 177.8 cm; Wt 111.6 kg
[2017-02-10 23:59] LABS: INR 2.6 (0.8-1.4); PROTHROMBIN TIME PATIENT 27.9 SEC (12.2-14.7)
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
[2017-02-11 01:14] VITALS: BP 150/94
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
== END 2017-02-11 01:14 | disposition home or self-care (01) ==
LOC: EDUNIT# 23:30 → ER 23:31
DX: S60.042A Contusion of left ring finger without damage to nail, initial encounter (principal); S60.052A Contusion of left little finger without damage to nail, initial encounter; S60.011A Contusion of right thumb without damage to nail, initial encounter; F41.9 Anxiety disorder, unspecified; E03.9 Hypothyroidism, unspecified; I10 Essential (primary) hypertension; Z79.01 Long term (current) use of anticoagulants; F17.210 Nicotine dependence, cigarettes, uncomplicated; Z86.711 Personal history of pulmonary embolism; Z86.718 Personal history of other venous thrombosis and embolism; Z87.442 Personal history of urinary calculi; Z87.81 Personal history of (healed) traumatic fracture; Y04.8XXA Assault by other bodily force, initial encounter
CPT/HCPCS: 36415; 70450; 85610; 99283

== ENCOUNTER → 2020-06-15 | Outpatient (CLI) | payer MEDICARE ==
[~2020-06-15] MED LIST changes: +ACHD5005 PO; -HYDR-3812 PO; +RIVA15TA2 PO; -TAMS0.4C98 PO
[2020-06-15 13:14] LABS: BASOPHILS # (AUTO) 0.1 10^3/uL (0.0-0.1); BASOPHILS % (AUTO) 1 % (0-10); EOSINOPHILS # (AUTO) 0.3 10^3/uL (0.0-0.3); EOSINOPHILS % (AUTO) 3 % (0-10); HEMATOCRIT 51 % (40-54); HEMOGLOBIN 16.3 g/dL (13.3-17.7); LYMPHOCYTES # (AUTO) 2.2 10^3/uL (1.0-4.0); LYMPHOCYTES % (AUTO) 23 % (12-44); MEAN CORPUSCULAR HEMOGLOBIN 30 pg (25-34); MEAN CORPUSCULAR HGB CONC 32 g/dL (32-36); MEAN CORPUSCULAR VOLUME 92 fL (80-99); MEAN PLATELET VOLUME 10.3 fL (9.0-12.2); MONOCYTES # (AUTO) 1.1 10^3/uL (0.0-1.0); MONOCYTES % (AUTO) 11 % (0-12); NEUTROPHILS % (AUTO) 62 % (42-75); PLATELET COUNT 203 10^3/uL (130-400); WHITE BLOOD COUNT 9.7 10^3/uL (4.3-11.0)
[2020-06-15 13:35] LABS: ERYTHROCYTE SEDIMENTATION RATE 11 MM/HR (0-30)
[2020-06-15 13:36] LABS: INR 1.6 (0.8-1.4); PROTHROMBIN TIME PATIENT 19.9 SEC (12.2-14.7)
--- NOTE | 2020-06-15 14:23 | Diagnostic Imaging Report ---
PROCEDURE: US left lower extremity venous. TECHNIQUE: Multiple Real-time grayscale images were obtained over the left lower extremity in various projections. Additional duplex Doppler and color Doppler images were also obtained. INDICATION: Left leg pain. FINDINGS: There is no evidence of left lower extremity DVT. The left lower extremity deep venous system shows normal compressibility with normal response to augmentation and Valsalva. No fluid collection or mass is detected. IMPRESSION: No evidence of left lower extremity DVT. Dictated by: Dictated on workstation # [id number]
== END ==
LOC: RAD 12:52
PROVIDERS: ATTEND Nurse Practitioner Family
DX: Z51.81 Encounter for therapeutic drug level monitoring (principal); M79.605 Pain in left leg; Z86.718 Personal history of other venous thrombosis and embolism
CPT/HCPCS: 36415; 85025; 85379; 85610; 85652

== ENCOUNTER 2020-09-08 09:11 | Emergency (ER) | payer MEDICARE ==
[~2020-09-08] VITALS: Ht 177 cm; Wt 102.0 kg
[2020-09-08] MEDS ORDERED: NS IV 1000 ML 1,000 ML IV SCH (10:00)
[2020-09-08] MEDS ORDERED: DICYCLOMINE 10 MG (BENTYL) CAP PO SCH (10:00)
[2020-09-08 10:01] LABS: CHLORIDE 104 MMOL/L (98-107); SODIUM 136 MMOL/L (135-145)
[2020-09-08 10:03] LABS: CALCIUM 8.9 MG/DL (8.5-10.1); GLUCOSE 175 MG/DL (70-105)
[2020-09-08 10:05] LABS: CARBON DIOXIDE 22 MMOL/L (21-32)
[2020-09-08 10:07] LABS: CREATININE SERUM 1.13 MG/DL (0.60-1.30); GFR ESTIMATED > 60
[2020-09-08 10:08] LABS: BUN/CREATININE RATIO 13
--- NOTE | 2020-09-08 10:28 | ED General ---
General Chief Complaint: Fever-Adult/Adol Stated Complaint: COVID + Nursing Triage Note: PT PRESENTS TO ED WITH COMPLAINTS OF LETHARGY, INTERMITTENT FEVERS, DIAHRREA, AND ABDOMINAL CRAMPING STARTING 09/05. PT REPROTS HE WAS TESTED FOR COVID YESTERDAY AND FOUND OUIT HE WAS POSITIVE TODAY. PT DENIES SOA OR COUGH. Source of Information: Patient Exam Limitations: No Limitations History of Present Illness Date Seen by Provider: Sep 08, 2020 Time Seen by Provider: 09:42 Initial Comments Patient is a 55-year-old male who presents to the emergency department today with a chief complaint of having abdominal cramping significant amounts of diarrhea, lost of taste and smell intermittent fevers and generalized malaise. Patient states that he tested for Covid yesterday and got his results this morning and was positive. He has been having symptoms for 6 days, onset was on Sunday. Patient denies any shortness of breath or cough. No real upper respiratory congestion, sore throat or earache or runny nose. He called his primary care physician and they advised him to come to the emergency room for evaluation. Patient is Covid vaccinated with a Kvng & Kvng single dose vaccine He denies any genitourinary complaints, rashes joint pain or swelling. All other review of systems reviewed and negative except as stated above. Timing/Duration: 2-3 Days Severity: Moderate Associated Systoms: Fever/Chills, Malaise, Nausea/Vomiting, Other (Diarrhea) Allergies and Home Medications Allergies Coded Allergies: NKANo Known Allergies (Verified Allergy, Unknown, 04/28/13) Home Medications Alprazolam 1 Mg Tablet, 1 MG PO HS, (Reported) Cefprozil 250 Mg Tablet, 250 MG PO BID Prescribed by: BRUCE SANDHU on 11/04/14 0963 Hydrocodone Bit/Acetaminophen 1 Each Tablet, 1 TAB PO EVERY 6-8 HOURS PRN for PAIN, (Reported) Levothyroxine Sodium 88 Mcg Tablet, 88 MCG PO DAILY, (Reported) Rivaroxaban 15 Mg Tablet, 15 MG PO BID Prescribed by: OUMAR MARTINEZ on 08/06/16 2612 Tamsulosin HCl 0.4 Mg Cap, 0.4 MG PO EVERY EVENING, (Reported) Warfarin Sodium 7.5 Mg Tablet, 7.5 MG PO HS, (Reported) Patient Home Medication List Home Medication List Reviewed: Yes Review of Systems Review of Systems Constitutional: see HPI, malaise, weakness EENTM: no symptoms reported Respiratory: no symptoms reported Cardiovascular: no symptoms reported Gastrointestinal: diarrhea, loss of appetite, nausea Genitourinary: no symptoms reported Musculoskeletal: muscle pain, muscle cramps Skin: no symptoms reported Psychiatric/Neurological: No Symptoms Reported All Other Systems Reviewed Negative Unless Noted: Yes Past Dqrhuaf-Fhglcy-Jfulnd Hx Patient Social History Tobacco Use?: Yes Tobacco type used: Cigarettes Smoking Status: Current Everyday Smoker Substance use?: Yes Substance type: Marijuana Alcohol Use?: No Pt feels they are or have been: No Immunizations Up To Date Tetanus Booster (TDap): Unknown Second COVID19 Vaccination Balaji: 07/05/20 COVID19 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: [employer] Past Medical History Surgeries: Yes (URETERAL STENT, LEFT ANKLE ORIF, VENA CAVA FILTER) Orthopedic, Renal, Vascular Surgery Respiratory: Yes Pulmonary Embolism, Sleep Apnea Currently Using CPAP: No Currently Using BIPAP: No Cardiac: Yes Deep Vein Thrombosis, Hypertension Neurological: No Reproductive Disorders: No Sexually Transmitted Disease: No Kidney Stones Gastrointestinal: Yes (HEPATIC STEATOSIS) Liver Disease/Jaundice, Diverticulosis Musculoskeletal: Yes (LEFT ANKLE FX ORIF 2013) Degenerate Disk Disease, Fractures Endocrine: Yes Hypothyroidsim Cancer: 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) Thyroid Psychosocial: Yes Anxiety Integumentary: No Blood Disorders: No Family Medical History Family history: Thyroid disorder 03 MOTHER No Pertinent Family Hx Physical Exam Vital Signs Vital Signs - First Documented 09/08/20 09:32 Temp 37.1 Pulse 89 Resp 18 B/P (MAP) 151/95 (113) Pulse Ox 95 Capillary Refill : Less Than 3 Seconds Height, Weight, BMI Height: 5'10.00" Weight: 246lbs. 0.0oz. [id number]; 32.00 BMI Method:Stated General Appearance: No Apparent Distress, WD/WN HEENT: PERRL/EOMI Neck: Normal Inspection Respiratory: Lungs Clear, Normal Breath Sounds, No Accessory Muscle Use, No Respiratory Distress Cardiovascular: Regular Rate, Rhythm, Normal Peripheral Pulses Gastrointestinal: Normal Bowel Sounds, Soft, Tenderness (Mild tenderness in the bilateral lower quadrants without rebound or involuntary guarding) Extremity: Normal Capillary Refill, Normal Inspection Neurologic/Psychiatric: Alert, Oriented x3, No Motor/Sensory Deficits, Normal Mood/Affect Skin: Normal Color, Warm/Dry Progress/Results/Core Measures Suspected Sepsis SIRS Temperature: Pulse: 89 Respiratory Rate: 18 Blood Pressure 151 /95 Mean: 113 Laboratory Tests 09/08/20 09:27: Creatinine 1.13 Results/Orders Lab Results Laboratory Tests Test 09/08/20 09:27 Range/Units Sodium Level 136 135-145 MMOL/L Potassium Level 4.0 3.6-5.0 MMOL/L Chloride Level 104 98-107 MMOL/L Carbon Dioxide Level 22 21-32 MMOL/L Anion Gap 10 5-14 MMOL/L Blood Urea Nitrogen 15 7-18 MG/DL Creatinine 1.13 0.60-1.30 MG/DL Estimat Glomerular Filtration Rate > 60 BUN/Creatinine Ratio 13 Glucose Level 175 H 70-105 MG/DL Calcium Level 8.9 8.5-10.1 MG/DL My Orders Orders - CITLALY SLATER MD Ed Iv/Invasive Line Start (09/08/20 09:48) Basic Metabolic Panel (09/08/20 09:48) Ns Iv 1000 Ml (Sodium Chloride 0.9%) (09/08/20 10:00) Dicyclomine Capsule (Bentyl Capsule) (09/08/20 10:00) Vital Signs/I&O 09/08/20 09:32 Temp 37.1 Pulse 89 Resp 18 B/P (MAP) 151/95 (113) Pulse Ox 95 Capillary Refill : Less Than 3 Seconds Blood Pressure Mean: 113 Progress Note : Time: 10:26 Progress Note Patient's labs have been reviewed, all are within normal limits. Clinically the patient looks well he is not hypoxic. I have discussed with him doing the monoclonal antibody infusion for Covid. Patient is interested in having this medication. Risks and benefits were discussed. Paperwork was filled out. Patient has no clinical or objective findings to warrant hospitalization at this time. All questions are sought and answered. Patient is stable for discharge. Departure Impression Primary Impression: Coronavirus infection Disposition: 01 HOME, SELF-CARE Condition: Stable Departure-Patient Inst. Decision time for Depature: 10:27 Referrals: BRUCE SANDHU DO (PCP/Family) Primary Care Physician Patient Instructions: COVID-19 (DC) Add. Discharge Instructions: Drink plenty of fluids to stay well-hydrated. Alternate Tylenol and ibuprofen as needed for aches and pains and any fever over 100.4. We have given you an order sheet for the monoclonal antibody infusion to treat COVID-19. You will get an appointment for this infusion. Please come back to the emergency room for any worsening symptoms especially with shortness of breath, high fevers or other worsening emergent complaints. CITLALY SLATER MD Sep 08, 2020 10:28
[2020-09-08 10:55] VITALS: BP 157/97
== END 2020-09-08 10:58 | disposition home or self-care (01) ==
LOC: EDUNIT# 09:11 → ER 09:13
DX: U07.1 COVID-19 (principal); G47.30 Sleep apnea, unspecified; I10 Essential (primary) hypertension; F41.9 Anxiety disorder, unspecified; E03.9 Hypothyroidism, unspecified; F17.210 Nicotine dependence, cigarettes, uncomplicated; Z86.711 Personal history of pulmonary embolism; Z86.718 Personal history of other venous thrombosis and embolism; Z79.01 Long term (current) use of anticoagulants; Z79.890 Hormone replacement therapy; Z79.899 Other long term (current) drug therapy
CPT/HCPCS: 36415; 80048

== ENCOUNTER → 2020-09-09 | Outpatient (CLI) | payer MEDICARE ==
[~2020-09-09] VITALS: Ht 175.3 cm; Wt 104.4 kg
[~2020-09-09] MED LIST changes: +CASIRIVIMAB/IMDEVIMAB 1,200 MG in NS (IVPB) 250 ML IV ONE; +EPINEPHrine INJECTION 1 MG/ML AMP IM PRN; +diphenhydrAMINE 50 MG/ML INJ (BENADRYL) IV PRN
[2020-09-09 09:15] VITALS: BP 140/81
[2020-09-09 10:45] VITALS: BP 152/90
== END ==
LOC: INFUSION 09:21
PROVIDERS: ATTEND Emergency Medicine
DX: Z23 Encounter for immunization (principal); U07.1 COVID-19

== ENCOUNTER 2020-10-01 11:15 | Outpatient (CLI) | payer MEDICARE ==
[~2020-10-01 11:15] MED LIST changes: -CASIRIVIMAB/IMDEVIMAB 1,200 MG in NS (IVPB) 250 ML IV ONE; -EPINEPHrine INJECTION 1 MG/ML AMP IM PRN; -diphenhydrAMINE 50 MG/ML INJ (BENADRYL) IV PRN
[2020-10-01] MEDS ORDERED: WATER (STERILE) FOR INJECTION 10 ML ONE (11:19)
[2020-10-01] MEDS ORDERED: cefTRIAXone 1,000 MG VIAL ONE (11:19)
[2020-10-01 11:27] VITALS: BP 149/97
--- NOTE | 2020-10-01 11:36 | Diagnostic Imaging Report ---
PROCEDURE: CT abdomen and pelvis without contrast. TECHNIQUE: Multiple contiguous axial images were obtained through the abdomen and pelvis without the use of intravenous contrast. Auto Exposure Controls were utilized during the CT exam to meet ALARA standards for radiation dose reduction. INDICATION: Abdominal pelvic pain COMPARISON with abdominal pelvic CT of 04/28/2013 FINDINGS: Imaging features consistent with acute sigmoid diverticulitis near the junction of its proximal and middle one-thirds. There is extensive regional diverticulosis, segmental bowel wall thickening, stranding and edema of the perisigmoidal fat with regional vascular congestion in the mesentery. The bubbles of gas about the site are believed to be all within the lumen of the multiple diverticula. No appreciable extraluminal air to suggest a transmural perforation. There is no free intraperitoneal gas. There is no resultant bowel obstruction and no abscess or drainable fluid collection. The adjacent urinary bladder showed no thickening of its ford and there is no bladder air to suggest its fistulization. There are few small reactive lymph nodes in the left lower quadrant as an expected finding. The air-containing appendix in the right lower quadrant well separable from the inflamed sigmoid. There is no evidence for appendicitis. There is an IVC filter in good position. There are intrarenal calculi bilaterally, the largest stone in the right lower pole calyx is 6 mm and on the left 4 mm. No opaque ureteral calculi. There is no hydroureteronephrosis. Liver, spleen, adrenals, pancreas, gallbladder, bile ducts all unremarkable. No ileus or bowel obstruction. IMPRESSION: 1. Findings of acute sigmoid diverticulitis without associated obstruction, abscess or findings of transmural perforation. No evidence for fistula. 2. Nonobstructing nephrolithiasis and a chronic indwelling IVC filter in good position. Vascular patency cannot be addressed owing to the absence of contrast. Call report requested, the number called, the call unanswered and there was no option to leave a voicemail. Report given to GEOVANNA Angeles, at 11:33 AM 10/01/2020/jesús Report faxed to GEOVANNA Angeles, at 11:34 AM 10/01/2020 Dictated by: Dictated on workstation # [id number]
[2020-10-01] MEDS ORDERED: LACTATED RINGERS 1,000 ML IV SCH (12:00)
[2020-10-01] MEDS ORDERED: ONDANSETRON 4 MG/2 ML (SDV) Z0FRAN IVP PRN (12:00)
[2020-10-01] MEDS ORDERED: cefTRIAXone 1,000 MG/SWFI 10 ML IV PUSH IV NR ×2 (12:00)
[2020-10-01] MEDS ORDERED: CATHETER FLUSH 10 ML SYR IV PRN (12:00)
== END 2020-10-01 13:20 | disposition home or self-care (01) ==
LOC: RAD 11:15
PROVIDERS: ATTEND Nurse Practitioner Family
DX: K57.32 Diverticulitis of large intestine without perforation or abscess without bleeding (principal); N20.0 Calculus of kidney; Z95.828 Presence of other vascular implants and grafts
CPT/HCPCS: 74176; 96367; 96374

== ENCOUNTER → 2020-10-26 | Outpatient (CLI) | payer MEDICARE ==
[~2020-10-26] MED LIST changes: +HOLD METFORMIN - RECEIVED CONTRAST 20 ML VIAL IV SCH; +IOHEXOL 350 MG/ML 100 ML (OMNIPAQUE 350) VIAL IV ONE; +NS 100 ML (IVPB) BAG IV ONE
--- NOTE | 2020-10-26 16:08 | Diagnostic Imaging Report ---
PROCEDURE: CT abdomen and pelvis with contrast. TECHNIQUE: Multiple contiguous axial images were obtained through the abdomen and pelvis after administration of intravenous contrast. Auto Exposure Controls were utilized during the CT exam to meet ALARA standards for radiation dose reduction. All CT scans use one or more of the following dose optimizing techniques: automated exposure control, MA and/or KvP adjustment based on patient size and exam type or iterative reconstruction. INDICATION: Diverticulitis. Comparison is made with prior CT from 10/01/2020. The lung bases are clear. Liver does show some generalized low density consistent with hepatic steatosis. No discrete liver mass is detected. The gallbladder is unremarkable. There is no biliary ductal dilatation. Pancreas and spleen are unremarkable. No adrenal mass is detected. Bilateral nonobstructing nephrolithiasis is again noted. No hydronephrosis is seen. Aorta is nonaneurysmal. There are enlarged lymph nodes in the central retroperitoneum left para-aortic location. The largest node measures approximately 2.8 x 1.5 cm. Etiology is indeterminate. There continues to be acute diverticulitis involving the sigmoid colon with bowel wall thickening and perisigmoidal inflammatory stranding. A tiny fluid density adjacent to the inflamed sigmoid loop is noted measuring approximately 16 mm x 8 mm. This may represent a small mural abscess or perisigmoidal abscess. No definite evidence of microperforation is seen at this time. Extensive diverticulosis of the descending colon is also noted. Bladder is decompressed. Prostate is unremarkable. There is no free fluid identified. IMPRESSION: Continued findings of acute sigmoid diverticulitis. There is a tiny fluid collection either within the wall of the sigmoid or adjacent to the inflamed sigmoid which may represent tiny abscess. No bowel obstruction or evidence of microperforation is seen at this time. Dictated by: Dictated on workstation # [id number]
== END ==
LOC: RAD 15:45
PROVIDERS: ATTEND Nurse Practitioner Family
DX: K57.32 Diverticulitis of large intestine without perforation or abscess without bleeding (principal)
CPT/HCPCS: 74177

== ENCOUNTER 2020-10-30 22:54 | Emergency (ER) | payer MEDICARE ==
[~2020-10-30] VITALS: Ht 175.3 cm; Wt 108.9 kg
[~2020-10-30 22:54] MED LIST changes: -HOLD METFORMIN - RECEIVED CONTRAST 20 ML VIAL IV SCH; -IOHEXOL 350 MG/ML 100 ML (OMNIPAQUE 350) VIAL IV ONE; -NS 100 ML (IVPB) BAG IV ONE
[2020-10-31] MEDS ORDERED: NS IV 1000 ML 1,000 ML IV SCH (00:30)
[2020-10-31] MEDS ORDERED: fentaNYL INJ 100 MCG/2 ML AMP IVP ONE (00:30)
[2020-10-31 00:40] LABS: BASOPHILS # (AUTO) 0.1 10^3/uL (0.0-0.1); BASOPHILS % (AUTO) 0 % (0-10); EOSINOPHILS # (AUTO) 0.1 10^3/uL (0.0-0.3); EOSINOPHILS % (AUTO) 0 % (0-10); HEMATOCRIT 51 % (40-54); HEMOGLOBIN 16.3 g/dL (13.3-17.7); LYMPHOCYTES # (AUTO) 1.1 10^3/uL (1.0-4.0); LYMPHOCYTES % (AUTO) 8 % (12-44); MEAN CORPUSCULAR HEMOGLOBIN 29 pg (25-34); MEAN CORPUSCULAR HGB CONC 32 g/dL (32-36); MEAN CORPUSCULAR VOLUME 89 fL (80-99); MEAN PLATELET VOLUME 9.6 fL (9.0-12.2); MONOCYTES # (AUTO) 0.9 10^3/uL (0.0-1.0); MONOCYTES % (AUTO) 7 % (0-12); NEUTROPHILS # (AUTO) 11.7 10^3/uL (1.8-7.8); NEUTROPHILS % (AUTO) 85 % (42-75); PLATELET COUNT 227 10^3/uL (130-400); WHITE BLOOD COUNT 13.8 10^3/uL (4.3-11.0)
[2020-10-31 00:46] LABS: BILIRUBIN,URINE NEGATIVE (NEGATIVE); CLARITY,URINE CLEAR; COLOR,URINE YELLOW; GLUCOSE, URINE (UA) NEGATIVE (NEGATIVE); KETONES,URINE TRACE (NEGATIVE); LEUKOCYTE ESTERASE ,URINE NEGATIVE (NEGATIVE); NITRITE,URINE NEGATIVE (NEGATIVE); PH,URINE 6.5 (5-9); PROTEIN,URINE TRACE (NEGATIVE)
[2020-10-31 00:54] LABS: BACTERIA,URINE TRACE /HPF; RBC,URINE 50-100 /HPF; WBC,URINE 0-2 /HPF
[2020-10-31 00:56] LABS: INR 1.5 (0.8-1.4); PROTHROMBIN TIME PATIENT 18.4 SEC (12.2-14.7)
[2020-10-31 00:58] LABS: CALCIUM 9.1 MG/DL (8.5-10.1)
[2020-10-31 01:02] LABS: CREATININE SERUM 1.34 MG/DL (0.60-1.30)
[2020-10-31 01:04] LABS: BAND NEUTROPHILS 2 %; LYMPHOCYTES % (MANUAL) 10 %; MONOCYTES % (MANUAL) 8 %; NEUTROPHILS % (MANUAL) 80 %
[2020-10-31] MEDS ORDERED: morphine INJ 10 MG/ML 1ML (SYR OR VIAL) IVP STA (01:11)
[2020-10-31] MEDS ORDERED: KETOROLAC 30 MG/ML VIAL IVP ONE (01:15)
[2020-10-31] MEDS ORDERED: OXYC1TAB87 PO ×2 (02:14→02:36)
[2020-10-31] MEDS ORDERED: oxyCODONE/APAP 5/325MG (PERCOCET 5) TABLET PO ONE (02:15)
--- NOTE | 2020-10-31 02:15 | ED General ---
General Chief Complaint: Back Problems Stated Complaint: LEFT FLANK PAIN Nursing Triage Note: Pt ambulates to ED 10 with c/o left flank pain. Pt reports having a CT scan on and was diagnosed with a kidney stone on left side. Increased pain started at approximately 1400 today, pt took hydrocodone when pain started with no relief. Source of Information: Patient, Old Records Exam Limitations: No Limitations (LONNY SERRANO MD) History of Present Illness Date Seen by Provider: Oct 30, 2020 Time Seen by Provider: 22:57 Initial Comments This 55-year-old gentleman presents to the emergency room with complaints of left flank pain. He was seen and evaluated on October [address] scan diagnosing him with diverticulitis. A left kidney stone was noted at that time. He has been experiencing intermittent hematuria for about a week. He is presently taking antibiotics and Flomax. He is on warfarin for history of prior DVT. He had history of COVID-19 infection in September (LONNY SERRANO MD) Allergies and Home Medications Allergies Coded Allergies: NYLAANo Known Allergies (Verified Allergy, Unknown, 04/28/13) Home Medications Alprazolam 1 Mg Tablet, 1 MG PO HS, (Reported) Cefprozil 250 Mg Tablet, 250 MG PO BID Prescribed by: BRUCE SANDHU on 11/04/14 0942 Hydrocodone Bit/Acetaminophen 1 Each Tablet, 1 TAB PO EVERY 6-8 HOURS PRN for PAIN, (Reported) Levothyroxine Sodium 88 Mcg Tablet, 88 MCG PO DAILY, (Reported) Oxycodone HCl/Acetaminophen 1 Each Tablet, 1-2 TAB PO Q4H PRN for PAIN-MODERATE (5-7) Prescribed by: LONNY HIRSCH on 10/31/20 0237 Oxycodone HCl/Acetaminophen 1 Each Tablet, 1 EACH PO Q6H PRN for PAIN-SEVERE Prescribed by: CITLALY SLATER on 10/31/20 1119 Rivaroxaban 15 Mg Tablet, 15 MG PO BID Prescribed by: OUMAR MARTINEZ on 08/06/16 1651 Tamsulosin HCl 0.4 Mg Cap, 0.4 MG PO EVERY EVENING, (Reported) Warfarin Sodium 7.5 Mg Tablet, 7.5 MG PO HS, (Reported) Patient Home Medication List Home Medication List Reviewed: Yes (LONNY SERRANO MD) Review of Systems Review of Systems Constitutional: no symptoms reported EENTM: no symptoms reported Respiratory: no symptoms reported Cardiovascular: no symptoms reported Gastrointestinal: see HPI Genitourinary: see HPI Musculoskeletal: no symptoms reported Skin: no symptoms reported Psychiatric/Neurological: No Symptoms Reported Hematologic/Lymphatic: See HPI Immunological/Allergic: no symptoms reported (LONNY SERRANO MD) Past Nfiylqt-Nxzuiv-Kvjxae Hx Patient Social History Tobacco Use?: Yes Tobacco type used: Cigarettes Smoking Status: Current Everyday Smoker Substance use?: Yes Substance type: Marijuana Alcohol Use?: Yes (LONNY SERRANO MD) Immunizations Up To Date Tetanus Booster (TDap): Unknown (LONNY SERRANO MD) Past Medical History Surgeries: Yes (URETERAL STENT, LEFT ANKLE ORIF, VENA CAVA FILTER) Orthopedic, Renal, Vascular Surgery Respiratory: Yes Pulmonary Embolism, Sleep Apnea Currently Using CPAP: No Currently Using BIPAP: No Cardiac: Yes Deep Vein Thrombosis, Hypertension Neurological: No Reproductive Disorders: No Sexually Transmitted Disease: No Genitourinary: Yes Kidney Stones Gastrointestinal: Yes (HEPATIC STEATOSIS) Liver Disease/Jaundice, Diverticulosis Musculoskeletal: Yes (LEFT ANKLE FX ORIF 2013) Degenerate Disk Disease, Fractures Endocrine: Yes Hypothyroidsim Cancer: 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) Thyroid Psychosocial: Yes Anxiety Integumentary: No Blood Disorders: No (LONNY SERRANO MD) Family Medical History Family history: Thyroid disorder 03 MOTHER No Pertinent Family Hx (LONNY SERRANO MD) Physical Exam Vital Signs Vital Signs - First Documented 10/30/20 23:20 Temp 36.1 Pulse 79 Resp 18 B/P (MAP) 229/121 (157) Pulse Ox 96 O2 Delivery Room Air (CITLALY SLATER MD) Vital Signs Capillary Refill : Less Than 3 Seconds (LONNY SERRANO MD) Height, Weight, BMI Height: 5'10.00" Weight: 246lbs. 0.0oz. 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 Skin: Normal Color, Warm/Dry (LONNY SERRANO MD) Progress/Results/Core Measures Suspected Sepsis SIRS Temperature: Pulse: 79 Respiratory Rate: 18 Laboratory Tests 10/31/20 00:33: White Blood Count 13.8H Blood Pressure 229 /121 Mean: 157 Laboratory Tests 10/31/20 00:33: Creatinine 1.34H, INR Comment 1.5H, Platelet Count 227 (LONNY SERRANO MD) Results/Orders Lab Results Laboratory Tests Test 10/30/20 00:38 10/31/20 00:33 Range/Units Urine Color YELLOW Urine Clarity CLEAR Urine pH 6.5 5-9 Urine Specific [place] 1.015 L 1.016-1.022 Urine Protein TRACE H NEGATIVE Urine Glucose (UA) NEGATIVE NEGATIVE Urine Ketones TRACE H NEGATIVE Urine Nitrite NEGATIVE NEGATIVE Urine Bilirubin NEGATIVE NEGATIVE Urine Urobilinogen 0.2 < = 1.0 MG/DL Urine Leukocyte Esterase NEGATIVE NEGATIVE Urine RBC (Auto) 3+ H NEGATIVE Urine RBC 50-100 H /HPF Urine WBC 0-2 /HPF Urine Crystals NONE /LPF Urine Bacteria TRACE /HPF Urine Casts NONE /LPF Urine Mucus NEGATIVE /LPF Urine Culture Indicated NO White Blood Count 13.8 H 4.3-11.0 10^3/uL Red Blood Count 5.68 H 4.30-5.52 10^6/uL Hemoglobin 16.3 13.3-17.7 g/dL Hematocrit 51 40-54 % Mean Corpuscular Volume 89 80-99 fL Mean Corpuscular Hemoglobin 29 25-34 pg Mean Corpuscular Hemoglobin Concent 32 32-36 g/dL Red Cell Distribution Width 13.9 10.0-14.5 % Platelet Count 227 130-400 10^3/uL Mean Platelet Volume 9.6 9.0-12.2 fL Immature Granulocyte % (Auto) 0 % Neutrophils (%) (Auto) 85 H 42-75 % Lymphocytes (%) (Auto) 8 L 12-44 % Monocytes (%) (Auto) 7 0-12 % Eosinophils (%) (Auto) 0 0-10 % Basophils (%) (Auto) 0 0-10 % Neutrophils # (Auto) 11.7 H 1.8-7.8 10^3/uL Lymphocytes # (Auto) 1.1 1.0-4.0 10^3/uL Monocytes # (Auto) 0.9 0.0-1.0 10^3/uL Eosinophils # (Auto) 0.1 0.0-0.3 10^3/uL Basophils # (Auto) 0.1 0.0-0.1 10^3/uL Immature Granulocyte # (Auto) 0.1 0.0-0.1 10^3/uL Neutrophils % (Manual) 80 % Lymphocytes % (Manual) 10 % Monocytes % (Manual) 8 % Band Neutrophils 2 % Prothrombin Time 18.4 H 12.2-14.7 SEC INR Comment 1.5 H 0.8-1.4 Sodium Level 137 135-145 MMOL/L Potassium Level 4.0 3.6-5.0 MMOL/L Chloride Level 104 98-107 MMOL/L Carbon Dioxide Level 21 21-32 MMOL/L Anion Gap 12 5-14 MMOL/L Blood Urea Nitrogen 20 H 7-18 MG/DL Creatinine 1.34 H 0.60-1.30 MG/DL Estimat Glomerular Filtration Rate 55 BUN/Creatinine Ratio 15 Glucose Level 173 H 70-105 MG/DL Calcium Level 9.1 8.5-10.1 MG/DL (CITLALY SLATER MD) Medications Given in ED Current Medications Medications Dose Ordered Sig/Janelle Route Start Time Stop Time Status Last Admin Dose Admin Fentanyl Citrate 50 mcg ONCE ONCE IVP 10/31/20 00:30 10/31/20 00:31 DC 10/31/20 00:31 50 MCG Ketorolac Tromethamine 10 mg ONCE ONCE IVP 10/31/20 01:15 10/31/20 01:16 DC 10/31/20 01:16 10 MG Oxycodone/ Acetaminophen 1 tab ONCE ONCE PO 10/31/20 02:15 10/31/20 02:16 DC 10/31/20 02:15 1 TAB (CITLALY SLATER MD) Vital Signs/I&O 10/30/20 10/31/20 23:20 02:25 Temp 36.1 36.1 Pulse 79 64 Resp 18 18 B/P (MAP) 229/121 (157) 183/111 (157) Pulse Ox 96 97 O2 Delivery Room Air Room Air (CITLALY SLATER MD) Vital Signs/I&O Capillary Refill : Less Than 3 Seconds (LONNY SERRANO MD) Blood Pressure Mean: 157 Progress Note : Progress Note Fentanyl was administered for initial treatment of the pain. This did not last long and was followed by morphine. A liter of IV fluid was infused. By my interpretation there appears to be movement of the renal stone visible on KUB. This is likely the cause of his pain. Labs were reviewed. Toradol was also administered as his INR appears to be fairly low despite warfarin use. A Percocet was given just prior to discharge for longer lasting pain control. See discharge instructions. (LONNY SERRANO MD) Diagnostic Imaging Diagonstic Imaging: Xray Plain Films/CT/US/NM/MRI: abdomen, pelvis Comments KUB viewed by me. Report not yet available. There is a density in the left mid abdomen that seems to be consistent with the size of the stone previously seen on CT scan. This would suggest movement of the previously known stone. (LONNY SERRANO MD) Departure Impression Primary Impression: Left ureteral stone Additional Impressions: Hypertension Qualified Codes: I10 - Essential (primary) hypertension Subtherapeutic international normalized ratio (INR) Disposition: 01 HOME, SELF-CARE Condition: Improved Departure-Patient Inst. Referrals: BRUCE SANDHU DO (PCP/Family) Primary Care Physician Patient Instructions: Kidney Stones in Adults, High Blood Pressure ED Add. Discharge Instructions: Drink plenty of clear liquids. Continue your medications as previously prescribed. You may use Percocet as prescribed for pain. Contact your urologist on Sunday. Strain your urine and save any stones collected to present at your follow-up appointment. Your INR is subtherapeutic. Take 10 mg for your next dose and contact Dr. Sandhu's clinic on Sunday for further instructions. Call with questions or concerns. Return to the ER if you have worsening symptoms. All discharge instructions reviewed with patient and/or family. Voiced understanding. Scripts Oxycodone HCl/Acetaminophen (Oxycodone-Acetaminophen 5-325) 1 Each Tablet 1 EACH PO Q6H PRN for PAIN-SEVERE MDD 6, #15 TAB Prov: CITLALY SLATER MD 10/31/20 Oxycodone HCl/Acetaminophen (Percocet 5-325 mg Tablet) 1 Each Tablet 1-2 TAB PO Q4H PRN for PAIN-MODERATE (5-7) MDD 6 TABS, #20 TAB Prov: LONNY SERRANO MD 10/31/20 Copy Copies To 1: BRUCE SANDHU JOSHUA T MD Oct 31, 2020 02:15 CITLALY SLATER MD Oct 31, 2020 11:19
[2020-10-31 02:25] VITALS: BP 183/111
--- NOTE | 2020-10-31 06:43 | Diagnostic Imaging Report ---
HISTORY: Abdominal pain COMPARISON: 10/26/2020 FINDINGS: Frontal view of the abdomen demonstrates nondistended loops of bowel. There is no large collection of free air appreciated on the supine images. An IVC filter is noted. There are hyperdensities along the distal colon which are thought to be in diverticula. No definite renal or ureteral stones are identified. IMPRESSION: 1. No bowel obstruction or large collection of free air. Dictated by: Dictated on workstation # [id number]
[2020-10-31] MEDS ORDERED: OXYC1TAB11 PO (11:19)
== END 2020-10-31 02:25 | disposition home or self-care (01) ==
LOC: EDUNIT# 22:54 → ER 22:56
DX: N20.1 Calculus of ureter (principal); I10 Essential (primary) hypertension; R79.1 Abnormal coagulation profile; G47.30 Sleep apnea, unspecified; F41.9 Anxiety disorder, unspecified; E03.9 Hypothyroidism, unspecified; F17.210 Nicotine dependence, cigarettes, uncomplicated; Z86.711 Personal history of pulmonary embolism; Z86.718 Personal history of other venous thrombosis and embolism; Z79.890 Hormone replacement therapy; Z86.16 Personal history of COVID-19; Z79.01 Long term (current) use of anticoagulants; Z79.899 Other long term (current) drug therapy
CPT/HCPCS: 36415; 74018; 80048; 81000; 85007; 85027; 85610

== ENCOUNTER → 2020-11-24 | Outpatient (CLI) | payer MEDICARE ==
[~2020-11-24] MED LIST changes: +OXYC1TAB11 PO; +OXYC1TAB87 PO
== END | disposition home or self-care (01) ==
LOC: PREOP 05:33
PROVIDERS: ATTEND Surgery
DX: Z01.818 Encounter for other preprocedural examination (principal)

== ENCOUNTER → 2022-08-30 | Outpatient (CLI) | payer MEDICARE | END | disposition home or self-care (01) | LOC: PREOP 05:38 | PROVIDERS: ATTEND Specialist | DX: Z01.818 Encounter for other preprocedural examination (principal); H25.12 Age-related nuclear cataract, left eye ==

== ENCOUNTER → 2022-10-18 | Outpatient (CLI) | payer MEDICARE, OTHER | END | disposition home or self-care (01) | LOC: PREOP 06:02 | PROVIDERS: ATTEND Specialist | DX: Z01.818 Encounter for other preprocedural examination (principal) ==

== ENCOUNTER → 2022-11-01 | Outpatient (CLI) | payer MEDICARE, OTHER | END | disposition home or self-care (01) | LOC: PREOP 05:36 | PROVIDERS: ATTEND Specialist | DX: Z01.818 Encounter for other preprocedural examination (principal) ==